=== PATIENT | female | born 1945 | race Caucasian/White ===

== ENCOUNTER → 2018-05-29 | Outpatient (CLI) | payer OTHER | LOC: BHLMT 15:30 | PROVIDERS: ATTEND Internal Medicine Cardiovascular Disease | DX: I48.91 Unspecified atrial fibrillation (principal) | CPT/HCPCS: 93225-PO; 93226-PO ==

== ENCOUNTER → 2018-06-09 | Day surgery (SDC) | payer OTHER ==
[~2018-06-09] MED LIST: LIDOCAINE 1% 300 MG/30 ML SDV SC ONE
--- NOTE | 2018-06-11 11:11 | PDCTREPORT ---
Cardiothoracic Procedure Rpt Cardiothoracic Procedure Report: Insertion of a loop recorder: Patient was brought to the CV in the fasting state. The left ulysses pectoral region was sterilely prepped and draped. A small area was anesthetized with 2% xylocaine. Using a 10 blade a stab wound was made. Using blunt dissection a loop recorder was inserted under the skin using the loop insertion tool. 2 lety were used to close the incision. Pressure dressing was applied. Conclusions successful implantation of a loop recorder.
== END | disposition home or self-care (01) ==
LOC: FCATH 11:14
PROVIDERS: ATTEND Internal Medicine Interventional Cardiology
PROC: 0JH60PZ Insertion of Cardiac Rhythm Related Device into Chest Subcutaneous Tissue and Fascia, Open Approach (ICD-10-PCS; principal; 2018-06-09)
DX: I48.91 Unspecified atrial fibrillation (principal); F43.20 Adjustment disorder, unspecified; R55 Syncope and collapse
CPT/HCPCS: C1764